=== PATIENT | female | born 1990 ===

== ENCOUNTER 2019-10-11 16:13 | Emergency (ER) | payer MEDICAID, OTHER ==
[~2019-10-11] VITALS: Ht 175.3 cm; Wt 99.4 kg
--- NOTE | 2019-10-11 16:53 | NUR ---
pt ambulated to restroom with a steady gait. ua sent to lab
[2019-10-11 17:07] LABS: MICROSCOPIC INDICATED
[2019-10-11 17:26] LABS: BASOPHILS # (AUTO) 0.02 x10^3/uL (0-0.1); BASOPHILS % (AUTO) 0 % (0-1); EOSINOPHILS # (AUTO) 0.03 x10^3/uL (0-0.4); EOSINOPHILS % (AUTO) 0 % (1-7); LYMPHOCYTES # (AUTO) 2.28 x10^3/uL (1-3.4); LYMPHOCYTES % (AUTO) 25 % (22-44); MD NO; MEAN CORPUSCULAR HEMOGLOBIN 31.8 pg (27.0-34.8); MEAN CORPUSCULAR HGB CONC 33.9 g/dL (32.4-35.8); MEAN PLATELET VOLUME 9.1 fL (7.4-10.4); MONOCYTES # (AUTO) 0.52 x10^3/uL (0.2-0.8); MONOCYTES % (AUTO) 6 % (2-9); NEUTROPHILS % (AUTO) 69 % (42-75); PLATELET COUNT 253 x10^3/uL (130-400); RED BLOOD COUNT 4.32 x10^6/uL (3.82-5.3); RED CELL DISTRIBUTION WIDTH 12.9 % (9.6-15.2)
[2019-10-11 17:27] VITALS: BP 104/54
[2019-10-11 17:34] LABS: ALBUMIN 3.8 g/dL (3.4-5.0); ANION GAP 5 mmol/L (5-15); CALCIUM 8.7 mg/dL (8.5-10.1); CHLORIDE 111 mmol/L (98-107); CREATININE 0.92 mg/dL (0.55-1.02)
[2019-10-11 17:39] LABS: ALKALINE PHOSPHATASE 66 U/L (45-117); TOTAL PROTEIN 7.8 g/dL (6.4-8.2)
[2019-10-11 17:52] LABS: ALANINE AMINOTRANSFERASE 20 U/L (12-78)
== END 2019-10-11 18:40 | disposition home or self-care (01) ==
LOC: ED 18:00
DX: R30.0 Dysuria (principal); R10.11 Right upper quadrant pain; R10.9 Unspecified abdominal pain; R31.9 Hematuria, unspecified; Z90.49 Acquired absence of other specified parts of digestive tract
CPT/HCPCS: 36415; 80053; 81001; 84703; 85025; 99283

== ENCOUNTER 2020-09-13 19:59 | Emergency (ER) | payer MEDICAID, OTHER ==
[~2020-09-13] VITALS: Ht 175.3 cm; Wt 112.8 kg
[2020-09-13] MEDS ORDERED: LIDOCAINE 1%, 10ML INFIL ONE (20:30)
--- NOTE | 2020-09-13 21:49 | NUR ---
pt presents to ed with a bartholew cyst on labia. pt states it is getting bigger and harder and making it hard to sit down. pt had an appointment with her provider but it was canceled due to the new holiday. pt in gown on destineerbreanna, can intake worker chart set up in room, pt placed on continuous monitoring.
[2020-09-13] MEDS ORDERED: LIDOCAINE-MPF 1%, 5ML ONE (21:53)
--- NOTE | 2020-09-13 22:30 | NUR ---
erp at bedside performing procedure.
--- NOTE | 2020-09-13 23:30 | NUR ---
pt tolerated procedure well, resting on gurney, denies needs at this time.
[2020-09-13 23:44] LABS: HCG UR SG 1.028 (1.003-1.030); MICROSCOPIC INDICATED
[2020-09-13] MEDS ORDERED: HYDROcodone/APAP 5/325 TABLET ONE (23:52)
--- NOTE | 2020-09-13 23:55 | NUR ---
ua collected and sent to lab
[2020-09-14] MEDS ORDERED: HYDROcodone/APAP 5/325 TABLET PO ONE
--- NOTE | 2020-09-14 00:05 | NUR ---
pt given pain medication.
[2020-09-14 00:54] VITALS: BP 109/60
== END 2020-09-14 01:09 | disposition home or self-care (01) ==
LOC: ED 09-14
DX: N75.1 Abscess of Bartholin's gland (principal); N90.89 Other specified noninflammatory disorders of vulva and perineum; Z90.89 Acquired absence of other organs
CPT/HCPCS: 56420; 81001; 81025; 99284

== ENCOUNTER 2020-09-16 23:46 | Emergency (ER) | payer MEDICAID, OTHER ==
[~2020-09-16] VITALS: Ht 175.3 cm; Wt 112.0 kg
[2020-09-16 23:48] VITALS: BP 138/78
--- NOTE | 2020-09-17 01:52 | NUR ---
REPORT TO [facility]
== END 2020-09-17 02:50 | disposition home or self-care (01) ==
LOC: ED 09-17 00:01
DX: S30.23XA Contusion of vagina and vulva, initial encounter (principal); X58.XXXA Exposure to other specified factors, initial encounter; Y93.89 Activity, other specified; Y92.89 Other specified places as the place of occurrence of the external cause; Y99.8 Other external cause status
CPT/HCPCS: 99284

== ENCOUNTER 2020-12-05 14:55 | Outpatient (CLI) | payer MEDICAID, OTHER | END 2020-12-05 23:59 | disposition home or self-care (01) | LOC: CFH 14:55 | PROVIDERS: ATTEND Urology | DX: R10.9 Unspecified abdominal pain (principal); Z90.49 Acquired absence of other specified parts of digestive tract | CPT/HCPCS: 74176 ==